=== PATIENT | male | born 1965 | race Caucasian/White ===

== ENCOUNTER 2017-06-08 21:47 | Emergency (ER) | payer OTHER ==
[~2017-06-08] VITALS: Ht 180.3 cm; Wt 81.7 kg
[2017-06-08 22:04] LABS: URINE BILIRUBIN NEGATIVE (Negative); URINE BLOOD 2+ (Negative); URINE CLARITY CLEAR; URINE COLOR YELLOW; URINE GLUCOSE-RANDOM* NEGATIVE (Negative); URINE KETONES 2+ (Negative); URINE LEUKOCYTES NEGATIVE (Negative); URINE NITRITE NEGATIVE (Negative); URINE PROTEIN (DIPSTICK) NEGATIVE (Negative); URINE SPECIFIC GRAVITY 1.025 (1.005-1.035); URINE UROBILINOGEN 0.2 E.U./dl (0.2-1.0)
[2017-06-08 22:16] LABS: ABSOLUTE NEUTROPHILS 4.7 thou/uL (1.4-8.2); BASOPHILS 0.6 % (0.0-2.0); EOSINOPHILS 1.4 % (0.0-3.0); HEMATOCRIT 42.1 % (42.0-52.0); HEMOGLOBIN 14.3 gm/dL (14.0-18.0); LYMPHOCYTES 28.6 % (24.0-44.0); MCH 31.7 pg (26.0-34.0); MCHC 34.1 g/dL (28.0-37.0); MCV 92.8 fL (80.0-100.0); PLATELET COUNT 236 thou/uL (150-400); POLYS 57.4 % (36.0-66.0); RBC 4.53 mil/uL (4.50-6.00); RDW 12.5 % (10.5-14.5); WBC 8.2 thou/uL (4.0-11.0)
[2017-06-08 22:20] LABS: BACTERIA 1-9 Few /HPF (None Seen); CASTS None Seen /LPF (None Seen); CRYSTALS None Seen /LPF (None Seen); SQUAMOUS 0-3 Few /LPF (0-3); URINE RBC 3-10 Few /HPF (0-2); URINE WBC None Seen /HPF (0-5)
[2017-06-08 22:21] LABS: CALCIUM 9.6 mg/dL (8.5-10.1); CREATININE 2.2 mg/dL (0.7-1.3); POTASSIUM 3.9 mmol/L (3.5-5.1)
[2017-06-08] MEDS ORDERED: FLOMAX0.4 MG PO (22:55)
[2017-06-08] MEDS ORDERED: NORCO 5-325 TA1 EACH PO (22:55)
== END 2017-06-08 23:18 | disposition home or self-care (01) ==
LOC: ER 21:47
PROVIDERS: Emergency Medicine
DX: N20.1 Calculus of ureter (principal); S37.009A Unspecified injury of unspecified kidney, initial encounter; R10.9 Unspecified abdominal pain